=== PATIENT | male | born 1965 | race Caucasian/White ===

== ENCOUNTER 2021-04-20 14:50 | Emergency (ER) | payer OTHER ==
[~2021-04-20] VITALS: Ht 177.8 cm; Wt 95.2 kg
[~2021-04-20 14:50] MED LIST: CHOL200074 PO; DIAZ5TAB4 PO; IBUP200T49 PO
[2021-04-20 15:10] VITALS: BP 120/88
[2021-04-20 16:23] LABS: BASOPHILS % (AUTO) 0 % (0-1); EOSINOPHILS % (AUTO) 1 % (1-7); LYMPHOCYTES % (AUTO) 22 % (22-44); MEAN CORPUSCULAR HGB CONC 35.6 g/dL (33.2-36.2); MEAN PLATELET VOLUME 7.8 fL (7.4-10.4); MONOCYTES % (AUTO) 9 % (2-9); NEUTROPHILS % (AUTO) 68 % (42-75); PLATELET COUNT 247 x10^3/uL (130-400); RED BLOOD COUNT 4.66 x10^6/uL (4.38-5.82); RED CELL DISTRIBUTION WIDTH 12.6 % (9.4-14.8)
[2021-04-20 16:25] LABS: ALBUMIN 3.7 g/dL (3.4-5.0); ANION GAP 6 mmol/L (5-15); CHLORIDE 105 mmol/L (98-107); CREATININE 0.89 mg/dL (0.7-1.3)
[2021-04-20 16:28] LABS: MD NO
--- NOTE | 2021-04-20 16:46 | NUR ---
PT HAS C/O R LOWER CALF PAIN AND REDNESS. PT THINKS IT MIGHT BE A DVT. PT HAS EQUAL AND UNLABORED BREATHS, PT A/O X4. PT RESTING IN BED WITH MONITOR ON, PT VSS.
[2021-04-20] MEDS ORDERED: SULFAMETH./TRIMETHOPRIM DS 800MG/160MG TABLET ONE (17:34)
[2021-04-20] MEDS ORDERED: CEPHALEXIN 500 MG CAPSULE ONE (17:34)
[2021-04-20] MEDS ORDERED: CEPHALEXIN 500 MG CAPSULE PO ONE (18:00)
[2021-04-20] MEDS ORDERED: SULFAMETH./TRIMETHOPRIM DS 800MG/160MG TABLET PO ONE (18:00)
== END 2021-04-20 18:09 | disposition home or self-care (01) ==
LOC: ED 17:47
DX: L03.115 Cellulitis of right lower limb (principal)
CPT/HCPCS: 36415; 80048; 82040; 85025; 99285